=== PATIENT | female | born 1930 | race Caucasian/White ===

== ENCOUNTER 2017-07-29 10:30 | Inpatient (IN) | payer MEDICARE ==
[~2017-07-29] VITALS: Ht 170.2 cm; Wt 70.3 kg
[2017-07-29 13:29] LABS: APPEARANCE CLOUDY (CLEAR); BACTERIA MANY /hpf (NONE SEEN); BILIRUBIN NEGATIVE (NEGATIVE); COLOR YELLOW (YELLOW); EPITHELIAL CELLS 0-5 /hpf (0-5); GLUCOSE NEGATIVE (NEGATIVE); KETONE NEGATIVE (NEGATIVE); LEUKOCYTE ESTERASE 2+ (NEGATIVE); MUCUS <1+ /lpf (NONE SEEN); NITRITE POSITIVE (NEGATIVE); PROTEIN TRACE mg/dL (NEGATIVE); RED CELLS - URINE 0-5 /hpf (0-5); SPECIFIC GRAVITY 1.015 (1.005-1.020)
[2017-07-29 13:54] LABS: BASOPHILS 0.2 % (0-2); EOSINOPHILS 1.1 % (0-7); HEMATOCRIT 27.1 % (36.0-48.0); HEMOGLOBIN 8.6 g/dL (12-16); IMMATURE GRANULOCYTES 0.5 % (0-5); MCH 29.9 pg (26.0-34.0); MCHC 31.7 g/dL (31.0-37.0); MCV 94.1 fL (80.0-100.0); MEAN PLATELET VOLUME 10.8 fL (7.4-10.4); MONOCYTES 8.4 % (2-11); NEUTROPHILS 81.8 % (40-80); PLATELET COUNT 261 10x3/uL (130-400); RBC 2.88 10x6/uL (4.00-5.40); RDW 17.6 % (11.5-14.5); WBC 9.9 10x3/uL (4.8-10.8)
[2017-07-29 14:50] LABS: ALBUMIN 2.6 g/dL (3.4-5.0); ALKALINE PHOSPHATASE 102 U/L (46-116); ALT (SGPT) 9 U/L (10-68); CALC OSMOLALITY 296 mosm/kg (275-300); CALCIUM 8.1 mg/dL (8.5-10.1); CARBON DIOXIDE 23.4 mmol/L (21.0-32.0); CHLORIDE - SERUM 112 mmol/L (98-107); CREATININE - SERUM 1.2 mg/dL (0.6-1.3); GLUCOSE 155 mg/dL (74-106); POTASSIUM - SERUM 4.6 mmol/L (3.5-5.1); PROTEIN - SERUM 5.6 g/dL (6.4-8.2); SODIUM 144 mmol/L (136-145); UREA NITROGEN 33 mg/dL (7-18); eGFR NON AFRICAN AMERICAN 45 mL/min (90-120)
[2017-07-29 15:00] LABS: CKMB 0.3 U/L (0.0-3.6); CREATINE KINASE 82 UL (21-215); TROPONIN-I < 0.017 ng/mL (0.000-0.060)
[2017-07-29 15:38] LABS: HEMATOCRIT 26.1 % (36.0-48.0); HEMOGLOBIN 8.3 g/dL (12-16)
[2017-07-29 17:10] VITALS: BP 108/47; BMI 24.3
[2017-07-29] MEDS ORDERED: ELIQUIS2.5 MG PO (17:16)
[2017-07-29] MEDS ORDERED: COREG12.5 MG PO (17:16)
[2017-07-29] MEDS ORDERED: NORVASC5 MG PO (17:17)
[2017-07-29] MEDS ORDERED: PRINZIDE 10/12.1 TA1 PO (17:17)
[2017-07-29] MEDS ORDERED: ASPIRIN81 MG PO (17:18)
[2017-07-29] MEDS ORDERED: FERROUS SULFAT325 MG PO (17:18)
[2017-07-29 19:00] VITALS: BP 105/50
[2017-07-29 20:11] LABS: HEMATOCRIT 24.8 % (36.0-48.0); HEMOGLOBIN 7.8 g/dL (12-16)
[2017-07-30] VITALS (17 sets, daily range): BP systolic 93–143; BP diastolic 46–60; Ht 170.2 cm; Wt 70.3 kg
[2017-07-30 06:25] LABS: BASOPHILS 0.1 % (0-2); EOSINOPHILS 0.5 % (0-7); HEMATOCRIT 22.8 % (36.0-48.0); IMMATURE GRANULOCYTES 0.7 % (0-5); MCH 29.5 pg (26.0-34.0); MCHC 31.1 g/dL (31.0-37.0); MCV 94.6 fL (80.0-100.0); MEAN PLATELET VOLUME 11.2 fL (7.4-10.4); MONOCYTES 11.9 % (2-11); NEUTROPHILS 76.8 % (40-80); PLATELET COUNT 297 10x3/uL (130-400); RBC 2.41 10x6/uL (4.00-5.40); RDW 17.9 % (11.5-14.5); WBC 10.1 10x3/uL (4.8-10.8)
[2017-07-30 06:30] LABS: HEMOGLOBIN 7.1 g/dL (12-16)
[2017-07-30 06:56] LABS: ALBUMIN 2.5 g/dL (3.4-5.0); ANION GAP 16.6 mmol/L (8-16); BILIRUBIN - TOTAL 0.26 mg/dL (0.2-1.3); CREATININE - SERUM 1.5 mg/dL (0.6-1.3); POTASSIUM - SERUM 4.6 mmol/L (3.5-5.1)
[2017-07-30] MEDS ORDERED: GEMFIBROZIL600 MG PO (09:57)
[2017-07-30] MEDS ORDERED: GLIMEPIRIDE1 MG PO (09:58)
[2017-07-30] MEDS ORDERED: COZAAR100 MG PO (09:58)
[2017-07-30] MEDS ORDERED: AVAPRO300 MG PO (15:12)
[2017-07-31] VITALS (13 sets, daily range): BP systolic 99–152; BP diastolic 50–75
[2017-07-31 06:23] LABS: BASOPHILS 0.1 % (0-2); EOSINOPHILS 0.3 % (0-7); HEMATOCRIT 26.6 % (36.0-48.0); IMMATURE GRANULOCYTES 0.9 % (0-5); MCH 29.8 pg (26.0-34.0); MCHC 33.5 g/dL (31.0-37.0); MEAN PLATELET VOLUME 11.1 fL (7.4-10.4); MONOCYTES 15.8 % (2-11); NEUTROPHILS 74.9 % (40-80); RDW 17.8 % (11.5-14.5); WBC 9.2 10x3/uL (4.8-10.8)
[2017-07-31 06:27] LABS: HEMOGLOBIN 8.9 g/dL (12-16); PLATELET COUNT 216 10x3/uL (130-400); RBC 2.99 10x6/uL (4.00-5.40)
[2017-08-01] VITALS (15 sets, daily range): BP systolic 112–158; BP diastolic 50–74
[2017-08-01 04:55] LABS: BASOPHILS 0.2 % (0-2); EOSINOPHILS 0.5 % (0-7); HEMATOCRIT 25.5 % (36.0-48.0); HEMOGLOBIN 8.4 g/dL (12-16); IMMATURE GRANULOCYTES 0.7 % (0-5); LYMPHOCYTES 11.5 % (15-50); MCH 29.7 pg (26.0-34.0); MCHC 32.9 g/dL (31.0-37.0); MCV 90.1 fL (80.0-100.0); MEAN PLATELET VOLUME 10.7 fL (7.4-10.4); MONOCYTES 14.4 % (2-11); NEUTROPHILS 72.7 % (40-80); PLATELET COUNT 229 10x3/uL (130-400); RBC 2.83 10x6/uL (4.00-5.40); RDW 17.4 % (11.5-14.5); WBC 8.4 10x3/uL (4.8-10.8)
[2017-08-01 05:22] LABS: ANION GAP 13.9 mmol/L (8-16); CALCIUM 7.9 mg/dL (8.5-10.1); CARBON DIOXIDE 22.4 mmol/L (21.0-32.0); POTASSIUM - SERUM 4.3 mmol/L (3.5-5.1)
--- NOTE | 2017-08-01 13:45 | OP ---
PATIENT NAME: NICCI MADISON MEDICAL RECORD: [id number] :[birth year] LOCATION:[facility] ADMISSION DATE:07/30/17 SURGEON: AMARI GONCALVES MD DATE OF OPERATION: 07/31/2017 PREOPERATIVE DIAGNOSES: 1. Left hemothorax. 2. Left rib fractures status post fall. 3. Urinary tract infection. 4. Chronic cardiac arrhythmia. 5. History of long-term use of blood thinners. 6. Anemia, acute blood loss. POSTOPERATIVE DIAGNOSES: 1. Left hemothorax. 2. Left rib fractures status post fall. 3. Urinary tract infection. 4. Chronic cardiac arrhythmia. 5. History of long-term use of blood thinners. 6. Anemia, acute blood loss. PROCEDURE: Left chest tube placement. SURGEON: Amari Goncalves MD. REPORT OF PROCEDURE: The patient's left chest was prepped and draped in sterile fashion. A total of 10 mL of 0.25% Marcaine with epinephrine was infused into the surrounding tissues. The 11 blade was used to make a skin incision about the level of the 9th rib where penetrated through the subcutaneous tissues and came over the 8th rib and penetrated the chest cavity. There was a spillage of blood at this point. I then placed Yankauer suction into the chest and removed about 1100 mL with thin bloody material. Once this was done, then I placed a 32-Slovenian chest tube into the chest cavity and hooked it up to water suction. There was immediate return of another 380 mL of thin bloody material. At this point, the blood returned slowed down significantly. We then sutured the chest tube into place with 2-0 silk and then dressed the chest tube appropriately. COMPLICATIONS: None. CONDITION: Stable. ANESTHESIA: TIVA and local. BLOOD LOSS: Minimal. TRANSINT:[id number] Voice Confirmation ID: [id number] DOCUMENT ID: [id number] OPERATIVE REPORT [id number] NICCI MADISON CHRISTIAN MD at 1346 CC: [id number] DICTATION DATE: 07/31/17 1348 BAKER TEST: 07/31/17 1437 [place] [id number]
[2017-08-02] VITALS: BP 155/56
[2017-08-02 04:00] VITALS: BP 103/58
[2017-08-02 05:26] LABS: BASOPHILS 0.1 % (0-2); EOSINOPHILS 1.3 % (0-7); HEMATOCRIT 25.1 % (36.0-48.0); HEMOGLOBIN 8.3 g/dL (12-16); IMMATURE GRANULOCYTES 0.6 % (0-5); LYMPHOCYTES 9.7 % (15-50); MCHC 33.1 g/dL (31.0-37.0); MCV 90.6 fL (80.0-100.0); MONOCYTES 18.5 % (2-11); NEUTROPHILS 69.8 % (40-80); PLATELET COUNT 255 10x3/uL (130-400); RBC 2.77 10x6/uL (4.00-5.40); RDW 17.2 % (11.5-14.5); WBC 8.9 10x3/uL (4.8-10.8)
[2017-08-02 05:47] LABS: ANION GAP 10.8 mmol/L (8-16); CALCIUM 8.5 mg/dL (8.5-10.1); CARBON DIOXIDE 24.4 mmol/L (21.0-32.0); CREATININE - SERUM 0.9 mg/dL (0.6-1.3); POTASSIUM - SERUM 4.2 mmol/L (3.5-5.1)
[2017-08-02 09:00] VITALS: BP 114/57
[2017-08-02 13:13] VITALS: BP 138/54
[2017-08-02 17:58] VITALS: BP 110/48
[2017-08-02 19:00] VITALS: BP 100/41
[2017-08-03 00:05] VITALS: BP 113/65
[2017-08-03 03:30] VITALS: BP 122/47
[2017-08-03 05:20] LABS: BASOPHILS 0.2 % (0-2); EOSINOPHILS 2.3 % (0-7); HEMATOCRIT 24.3 % (36.0-48.0); HEMOGLOBIN 7.8 g/dL (12-16); IMMATURE GRANULOCYTES 0.7 % (0-5); LYMPHOCYTES 8.7 % (15-50); MCH 29.5 pg (26.0-34.0); MCHC 32.1 g/dL (31.0-37.0); MEAN PLATELET VOLUME 10.7 fL (7.4-10.4); MONOCYTES 18.8 % (2-11); NEUTROPHILS 69.3 % (40-80); PLATELET COUNT 249 10x3/uL (130-400); RBC 2.64 10x6/uL (4.00-5.40); RDW 17.1 % (11.5-14.5); WBC 8.3 10x3/uL (4.8-10.8)
[2017-08-03 09:36] VITALS: BP 124/46
[2017-08-03] MEDS ORDERED: LIDODERM 5 %1 PATCH TRANSDERM (10:09)
[2017-08-03] MEDS ORDERED: HYDROCODON-ACE1 EAC7 PO (10:09)
[2017-08-03] MEDS ORDERED: BACTRIM DS TABL1 TAB PO (11:13)
== END 2017-08-03 13:20 | disposition home or self-care (01) | DRG 200 ==
LOC: D.ER 10:30 → D.MS 15:29 → OBSVTIME 15:29 → D.MS 15:29 → D.ICU 07-31 14:30 → D.MS 08-01 11:25
PROVIDERS: Family Medicine; ADMIT Surgery
PROC: 0W9B30Z Drainage of Left Pleural Cavity with Drainage Device, Percutaneous Approach (ICD-10-PCS; principal; 2017-07-31 11:15)
DX: S27.1XXA Traumatic hemothorax, initial encounter (principal); S22.42XA Multiple fractures of ribs, left side, initial encounter for closed fracture; N39.0 Urinary tract infection, site not specified; D62 Acute posthemorrhagic anemia; W18.11XA Fall from or off toilet without subsequent striking against object, initial encounter; B96.1 Klebsiella pneumoniae [K. pneumoniae] as the cause of diseases classified elsewhere; I49.9 Cardiac arrhythmia, unspecified; K59.00 Constipation, unspecified